=== PATIENT | male | born 1945 | race Caucasian/White ===

== ENCOUNTER 2017-04-10 12:29 | Day surgery (SDC) | payer MEDICARE, BC ==
[2017-04-03 15:16] VITALS: BP 163/85
[~2017-04-10] VITALS: Ht 172.7 cm; Wt 84.8 kg
[~2017-04-10 12:29] MED LIST: ATOR10TA9 PO; BUPIVACAINE/PF 0.5% ONE; CALC200T37 PO; CEFAZOLIN 1,000 MG ONE; DEXAMETHASONE 4 MG/ML, 1ML ONE; HYDR200T PO; KETOROLAC 30 MG/1 ML ONE; LISI-170 PO; MYCO500T3 PO; OMEP-110 PO; ONDANSETRON 2MG/ML, 2ML ONE; PROPOFOL 10 MG/ML, 20ML ONE; SUCCINYLCHOLINE 20 MG/ML, 10ML ONE
[2017-04-10] MEDS ORDERED: LACTATED RINGERS 1,000 ML IV SCH (13:02)
[2017-04-10] MEDS ORDERED: LIDOCAINE 1%, 2ML SQ PRN (13:30)
[2017-04-10] MEDS ORDERED: FENTANYL PF 100 MCG/2ML ONE (14:16)
[2017-04-10] MEDS ORDERED: MIDAZOLAM 1 MG/ML, 2ML ONE (14:16)
[2017-04-10] MEDS ORDERED: LIDOCAINE/PF 1%, 30ML ONE ×2 (15:29→15:46)
[2017-04-10] MEDS ORDERED: BUPIVACAINE/PF 0.25% ONE (15:29)
[2017-04-10] MEDS ORDERED: EPINEPHRINE 1 MG/ML, 1ML ONE ×2 (15:29→15:46)
[2017-04-10] MEDS ORDERED: CLINDAMYCIN 150 MG/ML, 6ML ONE (16:02)
[2017-04-10] MEDS ORDERED: HYDROmorphone 1 MG/ML, 1ML IV PRN (16:30)
[2017-04-10] MEDS ORDERED: ALBUTEROL/IPRATROPIUM 2.5MG/0.5MG, 3 ML NPPB PRN (16:30)
[2017-04-10] MEDS ORDERED: MEPERIDINE/PF 25MG/0.5ML IVPush PRN (16:30)
[2017-04-10] MEDS ORDERED: OXYcodone 5 MG/5 ML ORAL.SOL UDC PO PRN (16:30)
[2017-04-10] MEDS ORDERED: FENTANYL PF 100 MCG/2ML IV PRN (16:30)
[2017-04-10] MEDS ORDERED: MIDAZOLAM 1 MG/ML, 2ML IV PRN (16:30)
[2017-04-10] MEDS ORDERED: hydrALAzine 20 MG/ML, 1ML IV PRN (16:30)
[2017-04-10] MEDS ORDERED: PROMETHAZINE 25 MG/ML, 1ML IV PRN (16:30)
[2017-04-10] MEDS ORDERED: ACETAMINOPHEN 325 MG TABLET PO PRN (16:30)
[2017-04-10] MEDS ORDERED: LABETALOL 5MG/ML, 20ML IV PRN (16:30)
[2017-04-10] MEDS ORDERED: ONDANSETRON 2MG/ML, 2ML IVPush PRN (16:30)
== END 2017-04-10 19:25 ==
LOC: OUT 12:29
PROVIDERS: ATTEND Orthopaedic Surgery
DX: S46.012A Strain of muscle(s) and tendon(s) of the rotator cuff of left shoulder, initial encounter (principal); S46.112A Strain of muscle, fascia and tendon of long head of biceps, left arm, initial encounter; S43.432A Superior glenoid labrum lesion of left shoulder, initial encounter; M65.812 Other synovitis and tenosynovitis, left shoulder; M19.012 Primary osteoarthritis, left shoulder; M75.42 Impingement syndrome of left shoulder; K21.9 Gastro-esophageal reflux disease without esophagitis; E78.5 Hyperlipidemia, unspecified; J44.9 Chronic obstructive pulmonary disease, unspecified; I10 Essential (primary) hypertension; W18.39XA Other fall on same level, initial encounter; Y93.89 Activity, other specified; Y92.89 Other specified places as the place of occurrence of the external cause; Y99.8 Other external cause status; Z88.1 Allergy status to other antibiotic agents; Z88.8 Allergy status to other drugs, medicaments and biological substances; Z98.890 Other specified postprocedural states; Z98.52 Vasectomy status
CPT/HCPCS: 29823; 29826; 29828; C1713; J0171; J0330; J0690; J1100; J1885; J2250; J2405; J2704; J3010; J3490; J7120